=== PATIENT | female | born 1995 | race American Indian/Alaskan Native ===

== ENCOUNTER 2019-07-19 11:34 | Emergency (ER) | payer OTHER ==
--- NOTE | 2019-07-19 12:02 | Event Note ---
ED Screening Note Date of service: 07/19/19 Time: 12:00 ED Screening Note: 23 y o female presents with low pelvic pain x 1 week pressure with urination, cc of bilat breast pain in the am, right flank pain LMP 06/12/19 This initial assessment/diagnostic orders/clinical plan/treatment(s) is/are subj ect to change based on patients health status, clinical progression and re- assessment by fellow clinical providers in the ED. Further treatment and workup at subsequent clinical providers discretion. Patient/guardian urged not to elope from the ED as their condition may be serious if not clinically assessed and managed. Initial orders include: ACC eval ua, upt
[2019-07-19 12:46] LABS: Bilirubin,Urine NEG (Negative); Blood,Urine NEG (Negative); Color,Urine Yellow (Yellow); Protein,Urine <15 mg/dL mg/dL (Negative); Urobilinogen,Urine < 2.0 mg/dL (<2.0); WBC,Urine < 1.0 /HPF (0.0-6.0)
[2019-07-19 12:53] LABS: HCG Qualitative,Urine Positive (Negative); RBC,Urine < 1.0 /HPF (0.0-6.0)
--- NOTE | 2019-07-19 14:19 | Emergency Department Report ---
ED Abdominal Pain HPI - General Chief Complaint: Urogenital-Female Stated Complaint: BREAST ACHE Time Seen by Provider: 07/19/19 11:58 Source: patient, family Mode of arrival: Ambulatory Limitations: No Limitations - History of Present Illness Initial Comments: This is a 23-year-old patient reported that she is having breast pain and fullness and bladder fullness. She reports that she is having some back pain last menstrual period was 06/12/2019. She reports some pelvic cramping at 7/10. It was stated on triage note that patient was having chest pain per patient reports that she was having breast pain and pelvic pain with some back pain on and off. Pain is 7 out of 10 and intermittent. Crampy with pressure. Denies any nausea or vomiting. Denies any vaginal bleeding or discharge. Denies any urinary burning, frequency or urgency. No medication taken prior to coming to the emergency room. MD Complaint: abdominal pain, other (breast pain and fullness and) Onset/Timin -: week(s) Location: suprapubic (bilateral breast and lower back.) Radiation: none Migration to: no migration Severity: severe Severity scale (0 -10): 7 Quality: cramping Consistency: intermittent Improves With: nothing Worsens With: nothing Associated Symptoms: denies: nausea, vomiting, diarrhea, fever, chills, constipation, dysuria, hematemesis, hematochezia, hematuria, anorexia, syncope Treatments Prior to Arrival: other (none) - Related Data LMP Date: 06/12/19 Previous Rx's Medication Instructions Recorded Last Taken Type HYDROcodone/APAP 5-325 [[place] 1 each PO Q6HR PRN #12 tablet 10/10/14 Unknown Rx 5/325] Promethazine [Phenergan] 25 mg PO Q6H PRN #10 tablet 10/10/14 Unknown Rx Cyclobenzaprine HCl [Flexeril 5 MG 5 mg PO TID PRN #15 tab 09/26/15 Unknown Rx TAB] Sulfamethoxazole/Trimethoprim 1 each PO BID #10 tablet 09/26/15 Unknown Rx [Bactrim DS TAB] traMADol [Ultram] 50 mg PO Q8H PRN #15 tablet 09/26/15 Unknown Rx Allergies Allergy/AdvReac Type Severity Reaction Status Date / Time Penicillins Allergy Swelling Verified 09/26/15 18:40 ED Review of Systems ROS: Stated complaint: BREAST ACHE Other details as noted in HPI Constitutional: denies: chills, fever ENT: denies: throat pain, congestion Respiratory: denies: cough, shortness of breath, wheezing Cardiovascular: denies: chest pain, palpitations, edema, syncope Gastrointestinal: abdominal pain. denies: nausea, vomiting, diarrhea, con stipation, hematemesis, hematochezia Genitourinary: abnormal menses, other (reports breast pain and fullness of bilateral). denies: urgency, dysuria, frequency, hematuria, discharge, dyspareunia Musculoskeletal: back pain. denies: joint swelling, arthralgia, myalgia Skin: denies: rash Neurological: denies: headache, numbness, paresthesias, abnormal gait, vertigo ED Past Medical Hx - Past Medical History Previous Medical History?: Yes Additional medical history: PSEUDOSEIZURES - Surgical History Past Surgical History?: No - Family History Family history: no significant - Social History Smoking Status: Unknown if ever smoked Substance Use Type: None - Medications Home Medications: Home Medications Medication Instructions Recorded Confirmed Last Taken Type HYDROcodone/APAP 5-325 [[place] 1 each PO Q6HR PRN #12 tablet 10/10/14 Unknown Rx 5/325] Promethazine [Phenergan] 25 mg PO Q6H PRN #10 tablet 10/10/14 Unknown Rx Cyclobenzaprine HCl [Flexeril 5 MG 5 mg PO TID PRN #15 tab 09/26/15 Unknown Rx TAB] Sulfamethoxazole/Trimethoprim 1 each PO BID #10 tablet 09/26/15 Unknown Rx [Bactrim DS TAB] traMADol [Ultram] 50 mg PO Q8H PRN #15 tablet 09/26/15 Unknown Rx ED Physical Exam - General Limitations: No Limitations General appearance: alert, in no apparent distress - Head Head exam: Present: atraumatic, normocephalic - Eye Eye exam: Present: normal appearance, PERRL, EOMI Pupils: Present: normal accommodation - ENT ENT exam: Present: normal exam, normal orophraynx, mucous membranes moist - Neck Neck exam: Present: normal inspection, full ROM. Absent: tenderness, lymphadenopathy - Respiratory Respiratory exam: Present: normal lung sounds bilaterally, other (no chest wall tenderness. ). Absent: respiratory distress, chest wall tenderness - Cardiovascular Cardiovascular Exam: Present: regular rate, normal rhythm, normal heart sounds - GI/Abdominal GI/Abdominal exam: Present: soft, tenderness (mild tenderness to pelvic area.), normal bowel sounds. Absent: distended, guarding, rebound, rigid, organomegaly, mass - Extremities Exam Extremities exam: Present: normal inspection, full ROM, normal capillary refill, other (No cce. + 2 pulses in all extremities, no neurovascular compromise). Absent: tenderness, pedal edema, joint swelling, calf tenderness - Back Exam Back exam: Present: normal inspection, full ROM, other (M Pl. without any difficulties). Absent: tenderness, CVA tenderness (R), CVA tenderness (L), muscle spasm, paraspinal tenderness, vertebral tenderness, rash noted - Neurological Exam Neurological exam: Present: alert, oriented X3, normal gait - Psychiatric Psychiatric exam: Present: normal affect, normal mood - Skin Skin exam: Present: warm, dry, intact, normal color. Absent: rash - Other Other exam information: BREASTS: No chest deformity, asymmetry. Normal contours. No nodules, masses, tenderness, or axillary adenopathy. No nipple discharge. ED Course Vital Signs 07/19/19 07/19/19 12:00 17:56 Temperature 98.8 F 98.9 F Pulse Rate 78 89 Respiratory 18 18 Rate Blood Pressure 117/70 Blood Pressure 120/78 [Left] O2 Sat by Pulse 98 Oximetry - Reevaluation(s) Reevaluation #1: 07/21/19 14:21 Patient had uneventful ED stay ED Medical Decision Making - Lab Data Result diagrams: 07/19/19 14:30 07/19/19 14:30 Lab Results 07/19/19 07/19/19 07/19/19 Range/Units 14:30 14:30 14:30 WBC 3.9 L (4.5-11.0) K/mm3 RBC 4.67 (3.65-5.03) M/mm3 Hgb 13.3 (10.1-14.3) gm/dl Hct 40.3 (30.3-42.9) % MCV 86 (79-97) fl MCH 29 (28-32) pg MCHC 33 (30-34) % RDW 12.5 L (13.2-15.2) % Plt Count 263 (140-440) K/mm3 Lymph % (Auto) 33.5 (13.4-35.0) % [place] % (Auto) 7.2 (0.0-7.3) % Eos % (Auto) 1.9 (0.0-4.3) % Baso % (Auto) 1.4 (0.0-1.8) % Lymph # 1.3 (1.2-5.4) K/mm3 [place] # 0.3 (0.0-0.8) K/mm3 Eos # 0.1 (0.0-0.4) K/mm3 Baso # 0.1 (0.0-0.1) K/mm3 Seg Neutrophils % 56.0 (40.0-70.0) % Seg Neutrophils # 2.2 (1.8-7.7) K/mm3 Sodium 138 (137-145) mmol/L Potassium 3.9 (3.6-5.0) mmol/L Chloride 99.8 (98-107) mmol/L Carbon Dioxide 25 (22-30) mmol/L Anion Gap 17 mmol/L BUN 10 (7-17) mg/dL Creatinine 0.8 (0.7-1.2) mg/dL Estimated GFR > 60 ml/min BUN/Creatinine Ratio 13 % Glucose 90 (65-100) mg/dL Calcium 9.4 (8.4-10.2) mg/dL HCG, Quant 2676 H (0-4) mIU/mL Urine Color (Yellow) Urine Turbidity (Clear) Urine pH (5.0-7.0) Ur Specific [place] (1.003-1.030) Urine Protein (Negative) mg/dL Urine Glucose (UA) (Negative) mg/dL Urine Ketones (Negative) mg/dL Urine Blood (Negative) Urine Nitrite (Negative) Urine Bilirubin (Negative) Urine Urobilinogen (<2.0) mg/dL Ur Leukocyte Esterase (Negative) Urine WBC (Auto) (0.0-6.0) /HPF Urine RBC (Auto) (0.0-6.0) /HPF U Epithel Cells (Auto) (0-13.0) /HPF Urine HCG, Qual (Negative) 07/19/19 Range/Units Unknown WBC (4.5-11.0) K/mm3 RBC (3.65-5.03) M/mm3 Hgb (10.1-14.3) gm/dl Hct (30.3-42.9) % MCV (79-97) fl MCH (28-32) pg MCHC (30-34) % RDW (13.2-15.2) % Plt Count (140-440) K/mm3 Lymph % (Auto) (13.4-35.0) % [place] % (Auto) (0.0-7.3) % Eos % (Auto) (0.0-4.3) % Baso % (Auto) (0.0-1.8) % Lymph # (1.2-5.4) K/mm3 [place] # (0.0-0.8) K/mm3 Eos # (0.0-0.4) K/mm3 Baso # (0.0-0.1) K/mm3 Seg Neutrophils % (40.0-70.0) % Seg Neutrophils # (1.8-7.7) K/mm3 Sodium (137-145) mmol/L Potassium (3.6-5.0) mmol/L Chloride (98-107) mmol/L Carbon Dioxide (22-30) mmol/L Anion Gap mmol/L BUN (7-17) mg/dL Creatinine (0.7-1.2) mg/dL Estimated GFR ml/min BUN/Creatinine Ratio % Glucose (65-100) mg/dL Calcium (8.4-10.2) mg/dL HCG, Quant (0-4) mIU/mL Urine Color Yellow (Yellow) Urine Turbidity Clear (Clear) Urine pH 7.0 (5.0-7.0) Ur Specific [place] 1.017 (1.003-1.030) Urine Protein <15 mg/dl (Negative) mg/dL Urine Glucose (UA) Neg (Negative) mg/dL Urine Ketones Neg (Negative) mg/dL Urine Blood Neg (Negative) Urine Nitrite Neg (Negative) Urine Bilirubin Neg (Negative) Urine Urobilinogen < 2.0 (<2.0) mg/dL Ur Leukocyte Esterase Neg (Negative) Urine WBC (Auto) < 1.0 (0.0-6.0) /HPF Urine RBC (Auto) < 1.0 (0.0-6.0) /HPF U Epithel Cells (Auto) < 1.0 (0-13.0) /HPF Urine HCG, Qual Positive A (Negative) - Radiology Data Radiology results: report reviewed Patient had transvaginal OB ultrasound and signed abdominal OB ultrasound less than 14 weeks and report dictated by radiologist and reviewed by myself. Please see report below Findings [facility] [address] [place] [address] Ultrasound Report Signed Patient: JACQUELINE CAMPBELL MR#: [id number] : 1995 Acct:[id number] Age/Sex: 23 / F ADM Date: 07/19/19 Loc: ED Attending Dr: Ordering Physician: NATALI NICK Date of Service: 07/19/19 Procedure(s): US OB transvaginal Accession Number(s): [id number] cc: NATALI NICK US OB transvaginal, US OB <= 14 weeks fetus INDICATION / CLINICAL INFORMATION: positive urine test with pelvic pain. COMPARISON: None available. FINDINGS: Single intrauterine .. Gestational sac measures 5.6 mm, corresponding to a gestational age of 5 weeks 2 days. [place]-rump length measures 3.0 mm, corresponding to a gestational age of 5 weeks 6 days. heartbeat could not be identified at this early stage. Ovaries are normal. No free fluid. IMPRESSION: 1. Early (5 week 6 day) intrauterine . No heartbeat can be demonstrated. Suggest repeat ultrasound in approximately one week to confirm viability. Signer Name: Tucker Simpson MD Signed: 07/19/2019 5:05 PM Workstation Name: [id number] Transcribed By: TM Dictated By: Tucker Simpson MD Electronically Authenticated By: Tucker Simpson MD Signed Date/Time: 07/19/19 170 DD/ 57 TD/TT: - Medical Decision Making pt found to be at 5 weeks and 6 day. heart beats detected due to early . I discussed ultrasound result with the patient and told her that she needs to follow up with [employer] SUPERVISOR, start care and she is reviewed ultrasound in 1 week per radiologist. Patient stable in no acute distress. I discussed with her that this there are no heart tones detected and this could be because is too early or could be because of demise by the probability is higher that it could be due to early and she will need to follow up with [employer] SUPER[employer]OR and to get repeat ultrasound done in 1 week and she voiced understanding. - Differential Diagnosis intrauterine vs extrauterine , pelvic pain and , UTI Critical care attestation.: If time is entered above; I have spent that time in minutes in the direct care of this critically ill patient, excluding procedure time. ED Disposition Clinical Impression: Pelvic pain during Disposition: DC-01 TO HOME OR SELFCARE Is pt being admited?: No Does the pt Need Aspirin: No Condition: Stable Instructions: Abdominal Pain in (ED) Additional Instructions: Please follow up with [employer]PER[employer] SUPERVISOR in 2 days follow-up early intrauterine and for care. Start taking vitamin Your ultrasound shows that you are 5 weeks and 3 day and no hearts beat is detected said and this is probably from early and radiologist is recommended that you follow up for repeat ultrasound with your [employer]PERATIONS SUPERVISOR and one week. This could also probably be from demise but this you will have to have repeat ultrasound in 1 week to verify this. If you develop vaginal bleeding, fever and/or chills, increasing pain, weakness, please return to the emergency room [facility] Referrals: PRAVIN MYLES MD [Staff Physician] - 07/21/19 Forms: Accompanied Note, Work/School Release Form(ED)
[2019-07-19 14:40] LABS: Basophils # (Auto) 0.1 K/mm3 (0.0-0.1); Basophils % (Auto) 1.4 % (0.0-1.8); Eosinophils # (Auto) 0.1 K/mm3 (0.0-0.4); Eosinophils % (Auto) 1.9 % (0.0-4.3); Hematocrit 40.3 % (30.3-42.9); Hemoglobin 13.3 gm/dl (10.1-14.3); Lymphocytes # (Auto) 1.3 K/mm3 (1.2-5.4); Lymphocytes % (Auto) 33.5 % (13.4-35.0); Mean Corpuscular HGB Conc 33 % (30-34); Mean Corpuscular Volume 86 fl (79-97); Monocytes # (Auto) 0.3 K/mm3 (0.0-0.8); Monocytes % (Auto) 7.2 % (0.0-7.3); Platelet Count 263 K/mm3 (140-440); Red Blood Count 4.67 M/mm3 (3.65-5.03); Red Cell Distribution Width 12.5 % (13.2-15.2)
[2019-07-19 15:00] LABS: BUN/Creatinine Ratio 13; Blood Urea Nitrogen 10 mg/dL (7-17); Calcium 9.4 mg/dL (8.4-10.2); Hemolysis Index 10
--- NOTE | 2019-07-19 17:10 | Ultrasound Report ---
US OB transvaginal, US OB <= 14 weeks fetus INDICATION / CLINICAL INFORMATION: positive urine test with pelvic pain. COMPARISON: None available. FINDINGS: Single intrauterine .. Gestational sac measures 5.6 mm, corresponding to a gestational age o f 5 weeks 2 days. [place]-rump length measures 3.0 mm, corresponding to a gestational age of 5 weeks 6 days. heartbeat could not be identified at this early stage. Ovaries are normal. No free fluid. IMPRESSION: 1. Early (5 week 6 day) intrauterine . No heartbeat can be demonstrated. Suggest repea t ultrasound in approximately one week to confirm viability. Signer Name: Tucker Simpson MD Signed: 07/19/2019 5:05 PM Workstation Name: [id number]
--- NOTE | 2019-07-19 17:10 | Ultrasound Report ---
US OB transvaginal, US OB <= 14 weeks fetus INDICATION / CLINICAL INFORMATION: positive urine test with pelvic pain. COMPARISON: None available. FINDINGS: Single intrauterine .. Gestational sac measures 5.6 mm, corresponding to a gestational age o f 5 weeks [address] days[address] [place]-rump length measures 3.0 mm, corresponding to a gestational age of 5 weeks 6 days. heartbeat could not be identified at this early stage. Ovaries are normal. No free fluid. IMPRESSION: 1. Early (5 week 6 day) intrauterine . No heartbeat can be demonstrated. Suggest repea t ultrasound in approximately one week to confirm viability. Signer Name: Tucker Simpson MD Signed: 07/19/2019 5:05 PM Workstation Name: [id number]
[2019-07-19 17:57] VITALS: BP 120/78
== END 2019-07-19 17:59 | disposition home or self-care (01) ==
LOC: ED 11:34
DX: O26.891 Other specified pregnancy related conditions, first trimester (principal); R10.9 Unspecified abdominal pain; Z3A.01 Less than 8 weeks gestation of pregnancy; Z88.0 Allergy status to penicillin; Z79.899 Other long term (current) drug therapy
CPT/HCPCS: 36415; 76801; 76817; 80048; 81001; 81025; 84702; 85025; 99284

== ENCOUNTER 2019-12-22 14:49 | Outpatient (CLI) | payer OTHER ==
[2019-12-22 15:05] VITALS: BP 106/66
[2019-12-22] MEDS ORDERED: LACTATED RINGERS 500 ML IV ONE (15:05)
[2019-12-22 15:40] LABS: Bacteria,Urine 2+ /HPF (Negative); Bilirubin,Urine NEG (Negative); Blood,Urine NEG (Negative); Color,Urine Yellow (Yellow); Mucus,Urine FEW /HPF; Protein,Urine <15 mg/dL mg/dL (Negative); Urobilinogen,Urine < 2.0 mg/dL (<2.0)
== END 2019-12-22 17:05 | disposition home or self-care (01) ==
LOC: TRG 14:49
PROVIDERS: ATTEND Obstetrics & Gynecology
DX: O46.92 Antepartum hemorrhage, unspecified, second trimester (principal); Z3A.26 26 weeks gestation of pregnancy
CPT/HCPCS: 81001

== ENCOUNTER 2020-01-28 23:41 | Outpatient (CLI) | payer OTHER ==
[2020-01-28 23:53] VITALS: BP 116/74
== END 2020-01-29 01:30 | disposition home or self-care (01) ==
LOC: TRG 23:41
PROVIDERS: ATTEND Obstetrics & Gynecology
DX: O47.03 False labor before 37 completed weeks of gestation, third trimester (principal); Z3A.32 32 weeks gestation of pregnancy
CPT/HCPCS: 59025

== ENCOUNTER 2022-07-11 01:41 | Emergency (ER) | payer OTHER ==
[2022-07-11 01:46] VITALS: BP 141/82
--- NOTE | 2022-07-11 02:26 | XRay Report ---
Left knee 3 views INDICATION: Left knee pain after injury IMPRESSION: Small left knee effusion. No fracture is identified. Signer Name: Kunal Brownlee MD Signed: 07/11/2022 2:21 AM Workstation Name: [employer]
== END 2022-07-11 06:42 | disposition left against medical advice (07) ==
LOC: ED 01:41
DX: M25.562 Pain in left knee (principal); Z53.21 Procedure and treatment not carried out due to patient leaving prior to being seen by health care provider